=== PATIENT | male | born 1970 | race Caucasian/White ===

== ENCOUNTER 2024-03-06 14:07 | Day surgery (SDC) | payer BC ==
[2024-02-24 11:41] VITALS: BMI 27.5
[~2024-03-06 14:07] MED LIST: LIDOCAINE 1% (10MG/ML) FOR IV START INTRADERMA PRN
[2024-03-06 14:47] VITALS: TEMP 97.6
[2024-03-06] MEDS: LACTATED RINGERS 1,000 ML IV SCH (14:50)
[2024-03-06] MEDS: IV FLUID CONTINUATION 1,000 ML IV ONE (14:59)
[2024-03-06] MEDS ORDERED: PROPOFOL 10 MG/ML 20 ML VIAL IV ONE (15:07)
[2024-03-06] MEDS ORDERED: LIDOCAINE 1% INJ 10MG/ML (20 ML MDV) ONE (15:07)
[2024-03-06 15:38] VITALS: RESP 16
[2024-03-06 15:52] VITALS: BP 114/70; PULSE 78
--- NOTE | 2024-03-07 10:21 | P.PCN ---
Date of Procedure: 03/07/24 Preoperative Diagnosis: Rectal bleeding Cologuard positive Postoperative Diagnosis: Gastritis Transverse colon polyp Sigmoid colon polyp Rectal polyp Procedure(s) Performed: EGD with biopsy Colonoscopy with polypectomy, hot snare Anesthesia: MAC Surgeon: Aylin Peter Pathology: other (Polyps of the transverse colon, sigmoid colon, rectum and biopsies of the duodenum, antrum, GE junction) Condition: stable Disposition: same day Indications for Procedure: 53-year-old male with recent rectal bleeding and finding of Cologuard positive. Secondary to this upper and lower endoscopy have been recommended. Risks, benefits and alternatives provided to the patient. All questions answered. Operative Findings: Mild gastritis Polyps of the transverse colon, rectum and sigmoid colon Description of Procedure: The patient was brought to the endoscopy suite and placed in left lateral decubitus position and adequate sedation was achieved using conscious sedation. A bite block was placed and an endoscope was placed in the oropharynx and advanced under endoscopic visualization. The endoscope was advanced through the esophagus into the stomach, through the gastric antrum and in through the pylorus. The third portion the duodenum was visualized. The endoscope was then slowly withdrawn. The first portion of the duodenum was noted to have mild inflammatory changes and biopsies were taken. The antrum was noted to have inflammatory changes and biopsies were taken. The gastric body distended normally and the gastric folds appeared normal and flattened with insufflation. A retroflexed view of the fundus and GE junction revealed no significant hiatal hernia. The esophagus appeared endoscopically normal and biopsies were taken of the GE junction. Excess air was removed and the scope was withdrawn. A digital rectal exam was performed and mild internal hemorrhoids were palpated. An endoscope was then placed in the rectum and advanced to the cecum as identified by landmarks including the appendiceal orifice and the ileocecal valve. The prep was fair. The colonoscope was then slowly withdrawn, examining for any mucosal abnormalities. The cecum, ascending, transverse, descending and sigmoid colon were visualized adequately. Polyps were noted in the transverse colon, sigmoid colon and rectum. All were removed with hot snare polypectomy. Hemostasis was maintained at all sites. No evidence of diverticulosis. No additional inflammatory changes noted. Retroflexion was performed in the rectum and internal hemorrhoids were visible. Excess air was removed, the colonoscope withdrawn and the procedure terminated. The patient was then transferred to the recovery unit in stable condition. Repeat colonoscopy should be performed in 3 years.
== END 2024-03-06 16:10 | disposition home or self-care (01) ==
LOC: ORWHC2ENDO 14:07
PROVIDERS: ATTEND Surgery
DX: K62.5 Hemorrhage of anus and rectum (principal); D12.3 Benign neoplasm of transverse colon; D12.8 Benign neoplasm of rectum; K63.5 Polyp of colon; K64.8 Other hemorrhoids; K29.70 Gastritis, unspecified, without bleeding; K31.89 Other diseases of stomach and duodenum; K21.9 Gastro-esophageal reflux disease without esophagitis; F17.200 Nicotine dependence, unspecified, uncomplicated
CPT/HCPCS: 88305; 88342; 45385; 43239; J2003; J2704